=== PATIENT | female | born 1950 | race Caucasian/White ===

== ENCOUNTER 2019-03-11 06:34 | Day surgery (SDC) | payer BC, MEDICARE ==
[2019-03-11] MEDS ORDERED: Sodium Chloride 0.9% 1,000 ML IV SCH (07:15)
[2019-03-11] MEDS ORDERED: fentaNYL 100 MCG/2 ML SDV ONE (07:51)
[2019-03-11] MEDS ORDERED: Propofol 200 MG/20 ML SDV ONE (07:51)
[2019-03-11] MEDS ORDERED: Midazolam 1 MG/ML 2 ML SDV ONE (07:52)
[2019-03-11 09:39] VITALS: BP 111/65
--- NOTE | 2019-03-11 14:49 | OR ---
DATE OF PROCEDURE: 03/11/2019 PROCEDURE PERFORMED: Colonoscopy. FINDINGS: 1. Ascending colon polyp, approximately 5 mm, completely removed using cold biopsy forceps. 2. Diverticulosis, mild, limited to sigmoid colon. COMPLICATIONS: None. AIDS SOCIAL WORKER: None. ANESTHESIA: MAC. PREPROCEDURE DIAGNOSIS: History of colon polyps. RISKS: Risks, benefits, alternatives, and limitations including, but not limited to, infection, bleeding, and perforation were explained, and the patient wished to proceed. PROCEDURE IN DETAIL: The patient was placed in left lateral decubitus position. Digital rectal exam was performed without abnormality. Scope was introduced atraumatically to the ileocecal valve. The scope was brought back to the ascending, transverse, descending colon, and retroflexed. The aforementioned polyp at the ascending colon was identified and completely removed. Diverticulosis was described as mild and limited to sigmoid colon without evidence of diverticulitis or bleeding. On retroflex, no abnormalities noted. The patient tolerated the procedure well. Kan Vera MD /[id number]
== END 2019-03-11 09:30 | disposition home or self-care (01) ==
LOC: JP.SDS 06:34
PROVIDERS: ATTEND Surgery
DX: Z12.11 Encounter for screening for malignant neoplasm of colon (principal); D12.2 Benign neoplasm of ascending colon; K57.30 Diverticulosis of large intestine without perforation or abscess without bleeding; Z86.010 Personal history of colon polyps; I10 Essential (primary) hypertension; E78.5 Hyperlipidemia, unspecified; Z87.891 Personal history of nicotine dependence; Z79.82 Long term (current) use of aspirin; Z79.899 Other long term (current) drug therapy
CPT/HCPCS: 45380; J2250; J2704; J3010; J7030

== ENCOUNTER 2024-07-13 09:29 | Day surgery (SDC) | payer MEDICARE ==
[2024-07-13] MEDS: Sodium Chloride 0.9% 1,000 ML IV SCH (10:11)
[2024-07-13] MEDS ORDERED: fentaNYL 50 MCG/ML SDV ONE (10:29)
[2024-07-13] MEDS ORDERED: Propofol 200 MG/20 ML SDV ONE (10:29)
[2024-07-13 12:51] VITALS: BP 116/72; PULSE 69
== END 2024-07-13 12:54 | disposition home or self-care (01) ==
LOC: JP.SDS 09:29
PROVIDERS: ATTEND Surgery
DX: Z12.11 Encounter for screening for malignant neoplasm of colon (principal); K57.30 Diverticulosis of large intestine without perforation or abscess without bleeding
CPT/HCPCS: G0121; J2704; J3010; J7030; 00812-QZ